=== PATIENT | male | born 1970 | race Asian ===

== ENCOUNTER 2018-01-30 17:23 | Emergency (ER) | payer SELFPAY ==
[2018-01-30 17:36] VITALS: BP 125/74
[2018-01-30] MEDS ORDERED: HYDROCODONE/ACETAMINOPHEN 5-325 MG TABLET PO ONE (17:40)
[2018-01-30] MEDS ORDERED: ONDANSETRON 4 MG TAB.RAPDIS PO ONE (17:40)
[2018-01-30] MEDS ORDERED: SULFAMETHOXAZOLE/TRIMETHOPRIM 800-160 MG TABLET PO ONE (17:40)
--- NOTE | 2018-01-30 17:43 | ER Document Report ---
ED Skin Rash/Insect Bite/Abscs - General Chief Complaint: Abscess Stated Complaint: SKIN ISSUE Time Seen by Provider: 01/30/18 17:39 Mode of Arrival: Ambulatory Information source: Patient - HPI Patient complains to provider of: Tender/swollen area Notes: Patient is here with complaints of abscess to the middle of his back. He states that he got a home tattoo done and developed some swelling and redness and tenderness to the tattoo site a few days ago. Site has gotten progressively more swollen and more tender. No drainage. No fever. No nausea , vomiting, diarrhea. No history of abscess. No diabetes. No chest pain or shortness of breath. The area is worse with touch, better when not touched. No other complaints. - Related Data Allergies/Adverse Reactions: aspirin Allergy (Verified 01/30/18 17:39) Past Medical History - Social History Smoking Status: Unknown if Ever Smoked Family History: Reviewed & Not Pertinent - Immunizations Hx Diphtheria, Pertussis, Tetanus Vaccination: Yes Review of Systems - Review of Systems -: Yes All other systems reviewed and negative Physical Exam - Vital signs Vitals: Temp Pulse Resp BP Pulse Ox 98.7 F 97 16 125/74 100 01/30/18 17:35 01/30/18 17:35 01/30/18 17:35 01/30/18 17:35 01/30/18 17:35 - Notes Notes: GENERAL: alert, cooperative, nontoxic, no distress. HEAD: normocephalic, atraumatic EYES: conjunctiva pink without discharge, no external redness or swelling. EARS: no external swelling, no external redness NOSE: atraumatic, no external swelling MOUTH/THROAT: mucous membranes moist and pink, posterior pharynx without erythema, swelling, exudate. No trismus or drooling. NECK: soft, supple, full range of motion, no meningismus. CHEST: no distress, lungs clear and equal throughout. No wheezing, rales, rhonchi. CARDIAC: regular rate and rhythm, no murmur, normal capillary refill, normal pulses. No peripheral edema noted. BACK: full range of motion, no CVA tenderness. EXTREMITIES: full range of motion of all extremities. No redness, no swelling. NEURO: alert and oriented x 3, no focal deficits, full range of motion of all extremities. PYSCH: appropriate mood, affect. Patient is cooperative. SKIN: pink, warm, dry, no rash. 2 cm fluctuant abscess to the middle of the back overlying the new tattoo with several surrounding small pustules. Area is tender to palpation. Mild surrounding erythema. Course - Re-evaluation Re-evalutation: 01/30/18 18:21 Patient is nontoxic appearing with stable vitals. Is here with complaints of abscess to his back after having a tattoo done. Patient is noted to have an abscess with multiple small pustules around it to the middle of the spine. Mild surrounding redness. Has not been running fevers. He has no chronic medical conditions and is not immunosuppressed. The patient had an I&D performed in the emergency department. He was given antibiotics and pain medication here and will be discharged home with Keflex, Bactrim, [place], Zofran. Instructed to apply warm compresses to the sore area. Return in 2 days for recheck. Return sooner for worsening pain, fever, spreading redness, or for any further concerns. The patient is noted to have elevated blood pressure during today's emergency department visit. The patient was informed of this finding. The patient was instructed that this may be related to pre-hypertension and requires further evaluation with a primary care provider. The patient has no hypertensive symptoms at this time. The patient's emergency department workup and current diagnosis were explained to the patient and or family. Follow-up instructions were provided. Medications if prescribed were discussed. Instructions for when to return to the emergency department including specific worrisome symptoms were discussed with the patient and/or family. - Vital Signs Vital signs: Temp Pulse Resp BP Pulse Ox 98.7 F 97 16 125/74 100 01/30/18 17:35 01/30/18 17:35 01/30/18 17:35 01/30/18 17:35 01/30/18 17:35 Procedures - Incision and Drainage back Type: Simple Anesthetic type: 1% Lidocaine Blade size: 11 I&D procedure: Chlorprep applied Incision Method: Incision made by scalpel Amount/type of drainage: Moderate amount of purulent drainage. Notes: 01/30/18 18:22 Wound was probed with hemostats. Was irrigated with saline. Discharge - Discharge Clinical Impression: Abscess or cellulitis of back Condition: Stable Disposition: HOME, SELF-CARE Instructions: Abscess ([facility]), Cephalexin ([facility]), Post Incision and Drainage, Oral Narcotic Medication ([facility]), Trimethoprim-Sulfa ([facility]) Additional Instructions: Take medication as prescribed. Apply warm compresses to sore area 5 times a day. Return in 2 days for recheck. Return sooner for worsening pain, fever, increased swelling or redness, persistent vomiting, or for any further concerns. Your blood pressure was elevated during today's visit. Have this rechecked with your doctor. The medication you were prescribed today may cause drowsiness. Do not drive or operate heavy machinery while taking this medication. Prescriptions: Cephalexin Monohydrate [Keflex 500 mg Capsule] 500 mg PO Q6H #40 capsule Hydrocodone/Acetaminophen [[place] 5-325 mg Tablet] 2 tab PO Q6H PRN #15 tab PRN Reason: Ondansetron HCl [Zofran 4 mg Tablet] 1 - 2 tab PO Q4H PRN #10 tablet PRN Reason: Sulfamethoxazole/Trimethoprim [Bactrim Ds Tablet] 1 each PO BID #20 tablet Forms: Elevated Blood Pressure, Smoking Cessation Education Referrals: [facility] [Provider Group] - Follow up as needed
== END 2018-01-30 18:59 | disposition home or self-care (01) ==
LOC: ER 17:23
PROC: 0H96XZZ Drainage of Back Skin, External Approach (ICD-10-PCS; principal; 2018-01-30)
DX: L02.212 Cutaneous abscess of back [any part, except buttock and flank] (principal)
CPT/HCPCS: 99283; 10060; S0119